=== PATIENT | male | born 1965 | race Caucasian/White ===

== ENCOUNTER 2018-04-13 16:28 | Emergency (ER) | payer OTHER ==
[~2018-04-13] VITALS: Ht 180.3 cm; Wt 68.2 kg
[2018-04-13 18:30] LABS: APPEARANCE CLEAR ((CLEAR)); BILIRUBIN NEGATIVE; BLOOD MODERATE; COLOR COLORLESS ((YELLOW)); GLUCOSE (STRIP) NEGATIVE; KETONES NEGATIVE; LEUKOCYTES NEGATIVE; NITRITE NEGATIVE; PROTEIN (STRIP) NEGATIVE; SPECIFIC GRAVITY 1.002 (1.000-1.030); UROBILINOGEN 0.2 MG/DL (0.2-1.0)
[2018-04-13 18:38] LABS: BACTERIA NONE SEEN /HPF; EPITHELIAL CELLS NONE SEEN /HPF; MUCUS NONE SEEN /LPF; RED BLOOD CELLS 0-5 /HPF (0-5); UCUL ADDED? NO; WHITE BLOOD CELLS 0-5 /HPF (0-5)
[2018-04-13] MEDS ORDERED: NAPROXEN500 MG PO (19:28)
[2018-04-13] MEDS ORDERED: ULTRACET1 TABLET PO (19:32)
[2018-04-13 19:45] VITALS: BP 129/73
== END 2018-04-13 19:45 | disposition home or self-care (01) ==
LOC: EME 16:28
PROVIDERS: Physician Assistant Medical
DX: N50.811 Right testicular pain (principal); N50.812 Left testicular pain; L40.9 Psoriasis, unspecified; F41.0 Panic disorder [episodic paroxysmal anxiety]; F17.200 Nicotine dependence, unspecified, uncomplicated; Z87.442 Personal history of urinary calculi
CPT/HCPCS: 76870; 81003; 99281; 99284